=== PATIENT | male | born 1965 | race American Indian/Alaskan Native ===

== ENCOUNTER 2017-06-02 23:38 | Emergency (ER) | payer MEDICARE ==
[2017-06-03 00:26] LABS: Hematocrit 42.3 % (35.5-45.6); Hemoglobin 14.2 gm/dl (11.8-15.2); Mean Corpuscular HGB Conc 34 % (32-34); Mean Corpuscular Hemoglobin 28 pg (28-32); Mean Corpuscular Volume 83 fl (84-94); Platelet Count 177 K/mm3 (140-440); Red Blood Count 5.13 M/mm3 (3.65-5.03); Red Cell Distribution Width 13.8 % (13.2-15.2); White Blood Count 4.1 K/mm3 (4.5-11.0)
[2017-06-03 00:34] LABS: Anion Gap 17 mmol/L; BUN/Creatinine Ratio 13.57; Blood Urea Nitrogen 19 mg/dL (9-20); Calcium 8.6 mg/dL (8.4-10.2); Carbon Dioxide 21 mmol/L (22-30); Chloride 102.6 mmol/L (98-107); Glucose 92 mg/dL (75-100); Potassium 3.4 mmol/L (3.6-5.0); Sodium 137 mmol/L (137-145)
[2017-06-03 01:17] LABS: Urine Drugs of Abuse Note Disclamer
[2017-06-03 01:20] LABS: Bilirubin,Urine NEG (Negative); Blood,Urine SM (Negative); Ketones,Urine NEG (Negative); Leukocyte Esterase,Urine NEG (Negative); Mucus,Urine FEW /HPF; Nitrite,Urine NEG (Negative); RBC,Urine < 1.0 /HPF (0.0-6.0)
[2017-06-03 01:37] LABS: Basophils % (Manual) 0 % (0.0-1.8); Blastocytes % (Manual) 0 %
[2017-06-03 01:38] LABS: Diff Status Complete; RBC Morphology Normal; Smudge Cells 1+
--- NOTE | 2017-06-03 02:15 | Emergency Department Report ---
HPI - General Chief Complaint: Psych Time Seen by Provider: 06/03/17 01:03 - HPI HPI: This is a 51-year-old Afro-Burkinan male who presents to the emergency department with complaint of depression, suicidal ideations and a recent attempt , 3 days ago. The patient has a history of manic depression. He stopped taking his prescription about 1 month ago but he is currently unable to tell me the name of this prescription. He has a past medical history of HIV and had some recent foot surgery to his heel secondary to osteomyelitis. He is no longer on antibiotics and it has "closed up". When he attempted to harm himself 3 days ago, the patient took multiple sleeping pills, Xanax, alcohol and did cocaine. He denies any chest pain, shortness of breath, nausea, vomiting, fever. He denies any visual or auditory hallucinations or any homicidal ideations. ED Past Medical Hx - Past Medical History Previous Medical History?: Yes Hx Psychiatric Treatment: Yes (Depression) Hx HIV: Yes Additional medical history: Skin CA - Surgical History Past Surgical History?: Yes Additional Surgical History: right foot surgery - Social History Smoking Status: Current Every Day Smoker Substance Use Type: Cocaine, Other - Medications Home Medications: Home Medications Medication Instructions Recorded Confirmed Last Taken Type Abacavir/Lamivudine/Zidovudine 1 each PO DAILY 04/07/15 06/03/17 Unknown History [Trizivir TAB] Atazanavir Sulfate [Reyataz] 300 mg PO BID 04/07/15 06/03/17 Unknown History Hydrochlorothiazide [Hctz] 12.5 mg PO QDAY 04/07/15 06/03/17 04/07/15 History Lisinopril [Zestril] 20 mg PO QDAY 04/07/15 06/03/17 04/06/15 History Ritonavir [Norvir] 100 mg PO QDAY 04/07/15 06/03/17 Unknown History Permethrin 5% [Acticin 5% CREAM] 1 applicatio TP ONCE #2 tube 04/08/15 06/03/17 Unknown Rx hydrOXYzine HCL [Atarax] 25 mg PO Q6HR PRN #20 tablet 04/08/15 06/03/17 Unknown Rx ED Review of Systems ROS: Stated complaint: MH/DEPRESSION Other details as noted in HPI Comment: All other systems reviewed and negative Constitutional: denies: chills, fever Eyes: denies: eye pain, eye discharge, vision change ENT: denies: ear pain, throat pain Respiratory: denies: cough, shortness of breath, wheezing Cardiovascular: denies: chest pain, palpitations Gastrointestinal: denies: abdominal pain, nausea, diarrhea Genitourinary: denies: urgency, dysuria Musculoskeletal: denies: back pain, joint swelling, arthralgia Skin: denies: rash, lesions Neurological: denies: headache, weakness, paresthesias Psychiatric: suicidal thoughts. denies: auditory hallucinations, visual hallucinations, homicidal thoughts Physical Exam - Physical Exam Vital Signs: Vital Signs 06/02/17 23:40 Temperature 97.6 F Pulse Rate 72 Respiratory 20 Rate Blood Pressure 132/83 [Right] O2 Sat by Pulse 95 Oximetry Physical Exam: GENERAL: The patient is well-developed well-nourished. HEENT: Normocephalic. Atraumatic. Extraocular motions are intact. Patient has moist mucous membranes. Pupils equal reactive to light bilaterally. NECK: Supple. Trachea is midline. CHEST/LUNGS: Clear to auscultation. There is no respiratory distress noted. HEART/CARDIOVASCULAR: Regular. There is no tachycardia. There is no gallop rub or murmur. ABDOMEN: Abdomen is soft, nontender. Patient has normal bowel sounds. There is no abdominal distention. SKIN: Skin is warm and dry. NEURO: The patient is awake, alert, and oriented. The patient is cooperative. The patient has no focal neurologic deficits. The patient has normal speech. MUSCULOSKELETAL: There is no tenderness or deformity. There is no limitation range of motion. There is no evidence of acute injury. ED Course Vital Signs 06/02/17 23:40 Temperature 97.6 F Pulse Rate 72 Respiratory 20 Rate Blood Pressure 132/83 [Right] O2 Sat by Pulse 95 Oximetry ED Medical Decision Making - Lab Data Result diagrams: 06/03/17 00:03 06/03/17 00:03 - Medical Decision Making Labs are mostly unremarkable. Urine drug positive for marijuana and cocaine. No current alcohol on board. The rest the labs are unremarkable and do not show any etiology of the patient's symptoms. He has been made a 1013 secondary to his depression and suicidal ideations. Vital signs stable including being afebrile. Patient is medically cleared for psychiatric placement. - Differential Diagnosis depression, bipolar disorder, schizophrenia, substance abuse Critical Care Time: No Critical care attestation.: If time is entered above; I have spent that time in minutes in the direct care of this critically ill patient, excluding procedure time. ED Disposition Clinical Impression: Suicidal ideations Depression Qualifiers: Depression Type: unspecified Qualified Code(s): F32.9 - Major depressive disorder, single episode, unspecified Disposition: DC/TX-65 PSY HOSP/PSY UNIT Is pt being admited?: No Condition: Stable Referrals: GATO PERRY JR, MD [Primary Care Provider] - 3-5 Days Time of Disposition: 02:15
[2017-06-03] MEDS ORDERED: COMBIVIR 150-300 mg PO SCH (10:00)
[2017-06-03] MEDS ORDERED: ABACAVIR PO SCH (10:00)
[2017-06-03] MEDS ORDERED: ZIDOVUDINE PO SCH (10:00)
[2017-06-03] MEDS ORDERED: ATAZANAVIR SULFATE 300 MG PO SCH ×2 (10:00)
[2017-06-03] MEDS ORDERED: LAMIVUDINE PO SCH (10:00)
[2017-06-03] MEDS ORDERED: ULTRAM PO ONE (12:02)
[2017-06-03] MEDS ORDERED: CLEOCIN PO ONE (14:25)
--- NOTE | 2017-06-03 16:13 | XRay Report ---
FINAL REPORT EXAM: XR FOOT 2V RT HISTORY: wound TECHNIQUE: 2 views of the right foot PRIORS: None. FINDINGS: Soft tissue swelling proximal plantar surface. A superficial bandage appears present in this location. No evidence of foreign body. Calcaneus best visualized on lateral view. It appears deformed with apparent flattening of the height. This may be from prior trauma or developmental variation. Erosive change at the plantar surface cannot be entirely excluded since there is slight sclerosis and cortical irregularity in this region. If available, it may be useful to compare with prior radiographs to evaluate for interval change. Multifocal degenerative change. No definite acute fracture or dislocation. IMPRESSION: Nonspecific deformity of calcaneus may be from prior trauma or developmental variation. The differential includes erosive change of the plantar surface with adjacent sclerosis and cortical irregularity. As such, findings raise suspicion of osteomyelitis.
[2017-06-03] MEDS ORDERED: CLEOCIN ONE (16:41)
[2017-06-03] MEDS ORDERED: TYLENOL PO ONE (17:02)
[2017-06-03] MEDS ORDERED: MOTRIN PO ONE (17:02)
[2017-06-03] MEDS: EPIVIR PO SCH (18:02)
[2017-06-03] MEDS: HCTZ PO SCH (18:03)
[2017-06-03] MEDS: REYATAZ PO SCH (18:03)
[2017-06-03] MEDS: RETROVIR PO SCH (18:03)
[2017-06-03] MEDS: NORVIR PO SCH (18:03)
[2017-06-03] MEDS: ZIAGEN PO SCH (18:03)
[2017-06-04] MEDS: HCTZ PO SCH (11:12)
[2017-06-04] MEDS: REYATAZ PO SCH (11:13)
[2017-06-04] MEDS: EPIVIR PO SCH (11:13)
[2017-06-04] MEDS: ZIAGEN PO SCH (11:13)
[2017-06-04] MEDS: RETROVIR PO SCH (11:13)
[2017-06-04] MEDS: NORVIR PO SCH (11:14)
[2017-06-04 13:26] LABS: Alanine Aminotransferase 67 units/L (7-56); Alkaline Phosphatase 79 units/L (35-129)
--- NOTE | 2017-06-04 15:40 | Consultation ---
History of Present Illness - Reason for Consult Consult date: 06/04/17 Reason for consult: Mental Health Evaluation Requesting physician: GREGORY MORENO - Chief Complaint Chief complaint: "I have evil thoughts" - History of Present Psychiatric Illness This is a 51-year-old Afro-Burmese male who presents to the emergency department with complaint of depression, suicidal ideations and a recent attempt 3 days ago. Today patient is calm and cooperative during assessment. He stated that he want to "", but not willing to tell why. He stated taking multiple xanax, consumed a lot of alcohol (etoh), and smoked crack cocaine to kill himself. He stated, "I smoked the crack cocaine to bust my heart open." He stated having thoughts about killing himself multiple times in the past. He did state the voices he hear is "some" of the problem why he want to . He stated that the voices are "overwhelming." He stated that he have not taken his medication in a month (Abiify). He denies HI's, and VH's. He denies a poor appetite, but stated having erratic sleep in the last week. He stated that he don't usually smoke crack cocaine, but smoke marijuana often. He did acknowledge that his alcohol consumption has increased. Medications and Allergies Allergies Allergy/AdvReac Type Severity Reaction Status Date / Time No Known Allergies Allergy Unverified 04/07/15 22:15 Home Medications Medication Instructions Recorded Confirmed Last Taken Type Abacavir/Lamivudine/Zidovudine 1 each PO DAILY 04/07/15 06/03/17 Unknown History [Trizivir TAB] Atazanavir Sulfate [Reyataz] 300 mg PO BID 04/07/15 06/03/17 Unknown History Hydrochlorothiazide [Hctz] 12.5 mg PO QDAY 04/07/15 06/03/17 04/07/15 History Lisinopril [Zestril] 20 mg PO QDAY 04/07/15 06/03/17 04/06/15 History Ritonavir [Norvir] 100 mg PO QDAY 04/07/15 06/03/17 Unknown History Permethrin 5% [Acticin 5% CREAM] 1 applicatio TP ONCE #2 tube 04/08/15 06/03/17 Unknown Rx hydrOXYzine HCL [Atarax] 25 mg PO Q6HR PRN #20 tablet 04/08/15 06/03/17 Unknown Rx Active Meds: Active Medications Abacavir Sulfate (Ziagen) 300 mg PO DAILY [facility] Last Admin: 06/04/17 11:13 Dose: Not Given Atazanavir (Reyataz) 300 mg PO DAILY [facility] Last Admin: 06/04/17 11:13 Dose: Not Given Hydrochlorothiazide (Hctz) 12.5 mg PO QDAY [facility] Last Admin: 06/04/17 11:12 Dose: 12.5 mg Lamivudine (Epivir) 150 mg PO DAILY [facility] Last Admin: 06/04/17 11:13 Dose: Not Given Ritonavir (Norvir) 100 mg PO QDAY [facility] Last Admin: 06/04/17 11:14 Dose: Not Given Zidovudine (Retrovir) 300 mg PO DAILY [facility] Last Admin: 06/04/17 11:13 Dose: Not Given Past psychiatric history - Past Medical History Past Medical History: other (osteomyelitis) Past Surgical History: No surgical history - past Psychiatric treatment and history Psych: Bipolar, Depression psychiatric treatment history: Patient admit to multiple inpatient settings. He denies a fam psy hx. - Social History Social history: Lives alone, other ([employer] graduate and some college) Mental Status Exam - Vital signs Last Vital Signs Temp 98.3 F 06/04/17 09:27 Pulse 62 06/04/17 09:27 Resp 18 06/04/17 09:27 BP 126/77 06/04/17 09:27 Pulse Ox 98 06/04/17 09:27 - Exam Narrative exam: ROS: (+) psychotic/manic MSE: Appearance: calm, cooperative Behavior: regular eye contact Speech: regular rate and tone Mood: "I am sick" Affect: labile Thought Process: circumstantial Thought Content: denies SI and VH's Motor Activity: lying in bed Cognition: A/Ox 3 Insight: poor Judgment: poor Results Result Diagrams: 06/03/17 00:03 06/03/17 00:03 Abnormal lab results 06/04/17 06/04/17 Range/Units 12:54 12:54 AST 70 H (5-40) units/L ALT 67 H (7-56) units/L Valproic Acid < 2.8 L (50-100) ug/mL All other labs normal. Assessment and Plan Assessment and plan: Impression: Historical Dx: Bipolar DO. Experiencing perceptional disturbances ( AH's). Substance Use DO (marijuana and cocaine). Possible Alcohol Use DO. Patient positive for marijuana and cocaine. No acute withdrawals noted (etoh). Today patient is calm and cooperative during assessment. He stated that he want to , but not willing to tell why. Patient HIV+. Patient use wheelchair ( osteomyelitis in [place]). DDx: R/O MDD, R/O Substance Induced Psychosis/Mood DO Recommendation/Plan: Continue 1013 with placement to inpatient psy services. Start Abilify 5 mg PO Daily for psychotic symptoms and Benadryl 25 mg PO HS PRN for sleep. Discussed possible metabolic side effects of Abilify with patient.
[2017-06-04] MEDS ORDERED: BENADRYL PO PRN (16:02)
[2017-06-04] MEDS: ABILIFY PO SCH ×2 (17:16→20:51)
[2017-06-05] MEDS: HCTZ PO SCH (10:02)
[2017-06-05] MEDS: ABILIFY PO SCH (10:03)
[2017-06-05] MEDS: RETROVIR PO SCH (10:16)
[2017-06-05] MEDS: NORVIR PO SCH (10:16)
[2017-06-05] MEDS: EPIVIR PO SCH (10:16)
[2017-06-05] MEDS: REYATAZ PO SCH (10:16)
[2017-06-05] MEDS: ZIAGEN PO SCH (10:17)
[2017-06-05 10:58] LABS: Alanine Aminotransferase 64 units/L (7-56)
--- NOTE | 2017-06-05 13:32 | Progress Note ---
Subjective - Reason for Consult Consult date: 06/05/17 Reason for consult: Psychiatry Follow-up - Chief Complaint Chief complaint: "The thoughts are still there" This is a 51-year-old Afro-Maldivian male who presents to the emergency department with complaint of depression, suicidal ideations and a recent attempt 3 days ago. Today patient is calm and cooperative during the assessment. He stated that the thoughts of killing himself is still there. He stated feeling "awful" about life at this time. Also, he stated the voices say evil things about him, so he tries to ignore them. He denies HI's and VH's. He reported better sleep last night. Patient does not want to take his HIV medications and refuse to elaborate why. Mental Status Exam - Vital signs Last Vital Signs Temp 98 F 06/05/17 07:40 Pulse 60 06/05/17 10:04 Resp 16 06/05/17 10:04 BP 128/81 06/05/17 10:04 Pulse Ox 100 06/05/17 10:04 - Exam Narrative exam: MSE: Appearance: calm, cooperative Behavior: regular eye contact Speech: regular rate and tone Mood: "tired" Affect: labile Thought Process: circumstantial Thought Content: denies HI's and VH's Motor Activity: lying in bed Cognition: A/Ox 3 Insight: limited Judgment: limited Assessment and Plan Impression: Historical Dx: Bipolar DO. Experiencing perceptional disturbances ( AH's). Substance Use DO (marijuana and cocaine). Possible Alcohol Use DO. Patient positive for marijuana and cocaine. No acute withdrawals noted (etoh). Today patient is calm and cooperative during assessment. Patient HIV+. Patient use wheelchair (Osteomyelitis in [place]). He is refusing his HIV medications. Recommendation/Plan: Continue 1013 with placement to inpatient psy services. Continue Abilify 5 mg PO Daily for psychotic symptoms and Benadryl 25 mg PO HS PRN for sleep. Discussed possible metabolic side effects of Abilify with patient.
[2017-06-05 15:40] VITALS: BP 125/78
== END 2017-06-05 18:02 ==
LOC: ED 23:38 → EEVIPCON 23:38 → ED 06-05 18:02
DX: R45.851 Suicidal ideations (principal); F32.9 Major depressive disorder, single episode, unspecified; F17.200 Nicotine dependence, unspecified, uncomplicated; F14.10 Cocaine abuse, uncomplicated
CPT/HCPCS: 36415; 73620; 80048; 80307; 81001; 84450; 84460; 85007; 85025; 99285; G0480; 80320

== ENCOUNTER 2019-02-18 22:11 | Emergency (ER) | payer MEDICARE ==
--- NOTE | 2019-02-18 23:16 | Emergency Department Report ---
ED Psych HPI - General Chief Complaint: Psych Stated Complaint: SUICIDAL Time Seen by Provider: 02/18/19 23:04 Source: patient Mode of arrival: Ambulatory - History of Present Illness Initial Comments: Patient is 53 years old male with history of schizophrenia. Patient presented to the ER complaining of depression and suicidal thoughts. Patient has a plan and stated that he is planning to overdose on medication. Patient stated that he had a lot of problem with his family and patient started to cry in tears while I was examining him. Patient also stated that he has been hearing voices asking him to kill himself. Patient denied any visual hallucination or homicidal ideation. MD Complaint: suicidal ideation, feels depressed Associated Psychiatric Symptoms: depression, suicidal ideation, auditory hallucinations History of same: Yes Quality: constant Associated Symptoms: denies other symptoms If Self Harm: admits thoughts of, has plan, intentional overdose - Related Data Home Medications Medication Instructions Recorded Confirmed Last Taken Abacavir/Lamivudine/Zidovudine 1 each PO DAILY 04/07/15 06/03/17 Unknown [Trizivir TAB] Atazanavir Sulfate [Reyataz] 300 mg PO BID 04/07/15 06/03/17 Unknown Lisinopril [Zestril] 20 mg PO QDAY 04/07/15 06/03/17 04/06/15 Ritonavir [Norvir] 100 mg PO QDAY 04/07/15 06/03/17 Unknown hydroCHLOROthiazide [Hctz] 12.5 mg PO QDAY 04/07/15 06/03/17 04/07/15 Previous Rx's Medication Instructions Recorded Last Taken Type Permethrin 5% [Acticin 5% CREAM] 1 applicatio TP ONCE #2 tube 04/08/15 Unknown Rx hydrOXYzine HCL [Atarax] 25 mg PO Q6HR PRN #20 tablet 04/08/15 Unknown Rx Allergies Allergy/AdvReac Type Severity Reaction Status Date / Time No Known Allergies Allergy Unverified 04/07/15 22:15 ED Review of Systems ROS: Stated complaint: SUICIDAL Other details as noted in HPI Comment: All other systems reviewed and negative Constitutional: denies: chills, fever Respiratory: denies: cough, shortness of breath, SOB with exertion Cardiovascular: denies: chest pain, palpitations Gastrointestinal: denies: abdominal pain, nausea, vomiting Neurological: denies: headache, weakness, numbness, paresthesias, confusion Psychiatric: depression, auditory hallucinations, suicidal thoughts. denies: visual hallucinations, homicidal thoughts ED Past Medical Hx - Past Medical History Hx Psychiatric Treatment: Yes (Depression, drug abuse) Hx HIV: Yes Additional medical history: Skin CA - Surgical History Additional Surgical History: right foot surgery - Social History Smoking Status: Current Every Day Smoker Substance Use Type: Cocaine, Marijuana - Medications Home Medications: Home Medications Medication Instructions Recorded Confirmed Last Taken Type Abacavir/Lamivudine/Zidovudine 1 each PO DAILY 04/07/15 06/03/17 Unknown History [Trizivir TAB] Atazanavir Sulfate [Reyataz] 300 mg PO BID 04/07/15 06/03/17 Unknown History Lisinopril [Zestril] 20 mg PO QDAY 04/07/15 06/03/17 04/06/15 History Ritonavir [Norvir] 100 mg PO QDAY 04/07/15 06/03/17 Unknown History hydroCHLOROthiazide [Hctz] 12.5 mg PO QDAY 04/07/15 06/03/17 04/07/15 History Permethrin 5% [Acticin 5% CREAM] 1 applicatio TP ONCE #2 tube 04/08/15 06/03/17 Unknown Rx hydrOXYzine HCL [Atarax] 25 mg PO Q6HR PRN #20 tablet 04/08/15 06/03/17 Unknown Rx ED Physical Exam - General Limitations: No Limitations General appearance: alert, in no apparent distress, other (depressed) - Head Head exam: Present: atraumatic, normocephalic, normal inspection - Eye Eye exam: Present: normal appearance - ENT ENT exam: Present: normal exam, normal orophraynx, mucous membranes moist - Neck Neck exam: Present: normal inspection, full ROM. Absent: tenderness, meningismus, lymphadenopathy, thyromegaly - Respiratory Respiratory exam: Present: normal lung sounds bilaterally. Absent: respiratory distress, wheezes, rales, rhonchi, stridor, chest wall tenderness, accessory muscle use, decreased breath sounds, prolonged expiratory - Cardiovascular Cardiovascular Exam: Present: regular rate, normal rhythm, normal heart sounds - GI/Abdominal GI/Abdominal exam: Present: soft, normal bowel sounds. Absent: distended, tenderness, guarding, rebound, rigid, organomegaly, mass, bruit, pulsatile mass, hernia - Extremities Exam Extremities exam: Present: normal inspection, full ROM, normal capillary refill - Back Exam Back exam: Present: normal inspection, full ROM. Absent: tenderness, CVA tenderness (R), CVA tenderness (L), muscle spasm, paraspinal tenderness, vertebral tenderness - Neurological Exam Neurological exam: Present: alert, oriented X3, CN II-XII intact, normal gait, reflexes normal - Psychiatric Psychiatric exam: Present: depressed, suicidal ideation. Absent: agitated, anxious, flat affect, manic, homicidal ideation - Skin Skin exam: Present: warm, intact, normal color ED Course Vital Signs 02/18/19 02/18/19 22:32 22:49 Temperature 98.0 F 98 F Pulse Rate 98 H 89 Respiratory 18 18 Rate Blood Pressure 149/89 149/89 O2 Sat by Pulse 99 99 Oximetry Critical care attestation.: If time is entered above; I have spent that time in minutes in the direct care of this critically ill patient, excluding procedure time. ED Disposition Clinical Impression: Depression, Suicidal ideation Disposition: DC/TX-65 PSY HOSP/PSY UNIT Is pt being admited?: No Condition: Stable
[2019-02-18 23:25] LABS: Basophils % (Auto) 0.7 % (0.0-1.8); Eosinophils # (Auto) 0.9 K/mm3 (0.0-0.4); Eosinophils % (Auto) 14.3 % (0.0-4.3); Hematocrit 42.7 % (35.5-45.6); Hemoglobin 14.6 gm/dl (11.8-15.2); Lymphocytes # (Auto) 1.5 K/mm3 (1.2-5.4); Lymphocytes % (Auto) 22.7 % (13.4-35.0); Mean Corpuscular HGB Conc 34 % (32-34); Mean Corpuscular Volume 86 fl (84-94); Monocytes # (Auto) 0.9 K/mm3 (0.0-0.8); Platelet Count 235 K/mm3 (140-440); Red Blood Count 4.97 M/mm3 (3.65-5.03); Red Cell Distribution Width 13.9 % (13.2-15.2)
[2019-02-18 23:49] LABS: BUN/Creatinine Ratio 16; Blood Urea Nitrogen 21 mg/dL (9-20); Calcium 9.6 mg/dL (8.4-10.2); Hemolysis Index 11
[2019-02-19 00:12] LABS: Bilirubin,Urine NEG (Negative); Blood,Urine NEG (Negative); Color,Urine Yellow (Yellow); Mucus,Urine FEW /HPF; Protein,Urine <15 mg/dL mg/dL (Negative)
[2019-02-19 00:20] LABS: Amphetamine Screen,Urine PRESUMPTIVE NEGATIVE; Benzodiazepines Screen,Urine PRESUMPTIVE NEGATIVE; Cannabinoid Screen,Urine PRESUMPTIVE NEGATIVE; Methadone Screen,Urine PRESUMPTIVE NEGATIVE; Opiate Screen,Urine PRESUMPTIVE NEGATIVE
[2019-02-19 00:37] LABS: Cocaine Screen,Urine PRESUMPTIVE POSITIVE
[2019-02-19] MEDS ORDERED: HCTZ PO SCH (10:00)
[2019-02-19 10:41] VITALS: BP 132/91
== END 2019-02-19 10:42 ==
LOC: EEVIPCON 22:11 → ED 22:11
DX: F32.9 Major depressive disorder, single episode, unspecified (principal); F17.200 Nicotine dependence, unspecified, uncomplicated; F12.10 Cannabis abuse, uncomplicated; F14.10 Cocaine abuse, uncomplicated
CPT/HCPCS: 36415; 80048; 80307; 81001; 85025; 99285; G0480; 80320

== ENCOUNTER 2019-03-18 09:36 | Emergency (ER) | payer MEDICARE ==
[2019-03-18 10:04] VITALS: BP 132/89
--- NOTE | 2019-03-18 10:50 | Emergency Department Report ---
ED Extremity Problem HPI - General Chief complaint: Extremity Problem,Nontraumatic Stated complaint: R FOOT PAIN Time Seen by Provider: 03/18/19 10:21 Source: patient Mode of arrival: Wheelchair Limitations: No Limitations - History of Present Illness Initial comments: Patient is a 53-year-old male with a past medical history of hypertension and HIV and osteomyelitis of the right heel who had surgery on the right heel several years ago who is complaining of a wound to the plantar surface of the right foot. Patient states that his wound has been open for approximately a year and he does see wound care however he's had pain with the drainage for the past 3 days. Patient states his aching sharp sensation and is having difficulty walking. States is 7 out of 10 in severity. He denies any fevers chills nausea vomiting diarrhea at this time. - Related Data Home Medications Medication Instructions Recorded Confirmed Last Taken Abacavir/Lamivudine/Zidovudine 1 each PO DAILY 04/07/15 02/18/19 Unknown [Trizivir TAB] Atazanavir Sulfate [Reyataz] 300 mg PO BID 04/07/15 02/18/19 Unknown Lisinopril [Zestril] 20 mg PO QDAY 04/07/15 02/18/19 04/06/15 Ritonavir [Norvir] 100 mg PO QDAY 04/07/15 02/18/19 Unknown hydroCHLOROthiazide [Hctz] 12.5 mg PO QDAY 04/07/15 02/18/19 04/07/15 Previous Rx's Medication Instructions Recorded Last Taken Type Permethrin 5% [Acticin 5% CREAM] 1 applicatio TP ONCE #2 tube 04/08/15 Unknown Rx hydrOXYzine HCL [Atarax] 25 mg PO Q6HR PRN #20 tablet 04/08/15 Unknown Rx Acetaminophen/Codeine [Tylenol 1 tab PO Q6H PRN #15 tab 03/04/19 Unknown Rx /Codeine # 3 tab] Acetaminophen/Codeine [Tylenol 1 tab PO Q6H PRN #15 tab 03/04/19 Unknown Rx /Codeine # 3 tab] Hydrocortisone 15 gm TP BID #1 cream..g. 03/04/19 Unknown Rx Sulfamethoxazole/Trimethoprim 2 each PO BID #8 tablet 03/04/19 Unknown Rx [Bactrim DS TAB] Clindamycin [Clindamycin CAP] 300 mg PO Q8H #21 cap 03/18/19 Unknown Rx HYDROcodone/APAP 5-325 [[place] 1 each PO Q6HR PRN #14 tablet 03/18/19 Unknown Rx 5/325] Ibuprofen [Motrin 800 MG tab] 800 mg PO Q8HR PRN #10 tablet 03/18/19 Unknown Rx Allergies Allergy/AdvReac Type Severity Reaction Status Date / Time No Known Allergies Allergy Verified 03/16/19 13:50 ED Review of Systems ROS: Stated complaint: R FOOT PAIN Other details as noted in HPI Comment: All other systems reviewed and negative ED Past Medical Hx - Past Medical History Previous Medical History?: Yes Hx Hypertension: Yes Hx Psychiatric Treatment: Yes (Depression, drug abuse) Hx HIV: Yes Additional medical history: Skin CA, "Gallbladder messed up" - Surgical History Past Surgical History?: Yes Additional Surgical History: right foot surgery - Social History Smoking Status: Current Every Day Smoker Substance Use Type: None - Medications Home Medications: Home Medications Medication Instructions Recorded Confirmed Last Taken Type Abacavir/Lamivudine/Zidovudine 1 each PO DAILY 04/07/15 02/18/19 Unknown History [Trizivir TAB] Atazanavir Sulfate [Reyataz] 300 mg PO BID 04/07/15 02/18/19 Unknown History Lisinopril [Zestril] 20 mg PO QDAY 04/07/15 02/18/19 04/06/15 History Ritonavir [Norvir] 100 mg PO QDAY 04/07/15 02/18/19 Unknown History hydroCHLOROthiazide [Hctz] 12.5 mg PO QDAY 04/07/15 02/18/19 04/07/15 History Permethrin 5% [Acticin 5% CREAM] 1 applicatio TP ONCE #2 tube 04/08/15 02/18/19 Unknown Rx hydrOXYzine HCL [Atarax] 25 mg PO Q6HR PRN #20 tablet 04/08/15 02/18/19 Unknown Rx Acetaminophen/Codeine [Tylenol 1 tab PO Q6H PRN #15 tab 03/04/19 Unknown Rx /Codeine # 3 tab] Acetaminophen/Codeine [Tylenol 1 tab PO Q6H PRN #15 tab 03/04/19 Unknown Rx /Codeine # 3 tab] Hydrocortisone 15 gm TP BID #1 cream..g. 03/04/19 Unknown Rx Sulfamethoxazole/Trimethoprim 2 each PO BID #8 tablet 03/04/19 Unknown Rx [Bactrim DS TAB] Clindamycin [Clindamycin CAP] 300 mg PO Q8H #21 cap 03/18/19 Unknown Rx HYDROcodone/APAP 5-325 [[place] 1 each PO Q6HR PRN #14 tablet 03/18/19 Unknown Rx 5/325] Ibuprofen [Motrin 800 MG tab] 800 mg PO Q8HR PRN #10 tablet 03/18/19 Unknown Rx ED Physical Exam - General Limitations: No Limitations General appearance: alert, in no apparent distress - Head Head exam: Present: atraumatic, normocephalic - Eye Eye exam: Present: normal appearance - ENT ENT exam: Present: mucous membranes moist - Neck Neck exam: Present: normal inspection - Respiratory Respiratory exam: Present: normal lung sounds bilaterally. Absent: respiratory distress, wheezes, rales, rhonchi - Cardiovascular Cardiovascular Exam: Present: regular rate, normal rhythm. Absent: systolic murmur, diastolic murmur, rubs, gallop - GI/Abdominal GI/Abdominal exam: Present: soft, normal bowel sounds. Absent: distended, tenderness, guarding - Rectal Rectal exam: Present: deferred - Extremities Exam Extremities exam: Present: normal inspection - Expanded Lower Extremity Exam Right Foot/Toe exam: Present: full ROM, tenderness, erythema (patient with a dime- sized ulcerated area to the plantar surface of the right foot. There is some serous sanguinous drainage. There is minimal surrounding erythema present. There is tenderness to palpation. There is no fluctuance.). Absent: swelling - Back Exam Back exam: Present: normal inspection - Neurological Exam Neurological exam: Present: alert, oriented X3 - Psychiatric Psychiatric exam: Present: normal affect, normal mood - Skin Skin exam: Present: warm, dry, intact, normal color. Absent: rash ED Course Vital Signs 03/18/19 09:54 Temperature 98.7 F Pulse Rate 90 Respiratory 16 Rate Blood Pressure 132/89 O2 Sat by Pulse 99 Oximetry ED Medical Decision Making - Medical Decision Making Patient appears to have an infected wound to the right foot. Pain has been present for approximately 3 days.. Patient to be placed on antibiotics and fo llow with his wound care clinic. Critical care attestation.: If time is entered above; I have spent that time in minutes in the direct care of this critically ill patient, excluding procedure time. ED Disposition Clinical Impression: Infected wound Cellulitis Qualifiers: Site of cellulitis: extremity Site of cellulitis of extremity: lower extremity Laterality: right Qualified Code(s): L03.115 - Cellulitis of right lower limb Disposition: DC-01 TO HOME OR SELFCARE Is pt being admited?: No Does the pt Need Aspirin: No Condition: Stable Instructions: Wound Infection (ED) Referrals: Ino VALERA MD [Primary Care Provider] - 3-5 Days
== END 2019-03-18 11:10 | disposition home or self-care (01) ==
LOC: ED 09:36
DX: S91.301A Unspecified open wound, right foot, initial encounter (principal); L03.115 Cellulitis of right lower limb; I10 Essential (primary) hypertension; F17.200 Nicotine dependence, unspecified, uncomplicated; X58.XXXA Exposure to other specified factors, initial encounter; Y93.89 Activity, other specified; Y92.89 Other specified places as the place of occurrence of the external cause; Y99.8 Other external cause status
CPT/HCPCS: 99282

== ENCOUNTER 2019-11-07 23:54 | Emergency (ER) | payer MEDICARE, OTHER ==
[2019-11-08] MEDS ORDERED: diphenhydrAMINE 50 MG/ML VIAL IV ONE (00:30)
[2019-11-08] MEDS ORDERED: methylPREDNISolone Sod Succinate 125 MG/2 ML INJ IV ONE (00:30)
[2019-11-08] MEDS ORDERED: FAMOTIDINE 20 MG/2 ML INJ IV ONE (00:30)
--- NOTE | 2019-11-08 00:53 | Emergency Department Report ---
ED Allergic Reaction HPI - General Chief complaint: Allergic Reaction Stated complaint: ALLERGIC REACTION Time Seen by Provider: 11/08/19 00:20 Source: patient, EMS Mode of arrival: Stretcher Limitations: Physical Limitation - History of Present Illness Initial Comments: Patient is a 54-year-old male presents emergency room with complaints of an allergic reaction that began just prior to arrival. He states that approximately at 3 PM he used just for men hair color which caused him to have an allergic reaction. He states he noticed scales and irritation to the face, rash, irritation to the eyes, edema to the eyelids. He denies getting anything into the eyes. He denies any vision changes. pt has not used this product before. He does not report any shortness of breath, throat swelling, difficulty in swallowing. He denies any allergies medications. He has a past medical history of chronic osteomyelitis and is currently receiving antibiotics through PICC line and hypertension and HIV. - Related Data Home Medications Medication Instructions Recorded Confirmed Last Taken Abacavir/Lamivudine/Zidovudine 1 each PO DAILY 04/07/15 02/18/19 Unknown [Trizivir TAB] Atazanavir Sulfate [Reyataz] 300 mg PO BID 04/07/15 02/18/19 Unknown Ritonavir [Norvir] 100 mg PO QDAY 04/07/15 02/18/19 Unknown hydroCHLOROthiazide [Hctz] 12.5 mg PO QDAY 04/07/15 02/18/19 04/07/15 lisinopriL [Zestril] 20 mg PO QDAY 04/07/15 02/18/19 04/06/15 Previous Rx's Medication Instructions Recorded Last Taken Type Permethrin 5% [Acticin 5% CREAM] 1 applicatio TP ONCE #2 tube 04/08/15 Unknown Rx hydrOXYzine HCL [Atarax] 25 mg PO Q6HR PRN #20 tablet 04/08/15 Unknown Rx Acetaminophen/Codeine [Tylenol 1 tab PO Q6H PRN #15 tab 03/04/19 Unknown Rx /Codeine # 3 tab] Acetaminophen/Codeine [Tylenol 1 tab PO Q6H PRN #15 tab 03/04/19 Unknown Rx /Codeine # 3 tab] Hydrocortisone [Hydrocortisone 1% 15 gm TP BID #1 cream..g. 03/04/19 Unknown Rx CREAM] Sulfamethoxazole/Trimethoprim 2 each PO BID #8 tablet 03/04/19 Unknown Rx [Bactrim DS TAB] Clindamycin [Clindamycin CAP] 300 mg PO Q8H #21 cap 03/18/19 Unknown Rx HYDROcodone/APAP 5-325 [[place] 1 each PO Q6HR PRN #14 tablet 03/18/19 Unknown Rx 5/325] Ibuprofen [Motrin 800 MG tab] 800 mg PO Q8HR PRN #10 tablet 03/18/19 Unknown Rx Hydrocortisone 1% [Hydrocortisone 1 applicatio TP TID 7 Days #1 tube 11/08/19 Unknown Rx 1% CREAM] Ketotifen Fumarate 1 drop OP BID 7 Days #1 drops 11/08/19 Unknown Rx diphenhydrAMINE [Benadryl CAP] 50 mg PO Q8HR PRN #30 capsule 11/08/19 Unknown Rx Allergies Allergy/AdvReac Type Severity Reaction Status Date / Time No Known Allergies Allergy Verified 03/16/19 13:50 ED Review of Systems ROS: Stated complaint: ALLERGIC REACTION Other details as noted in HPI Comment: All other systems reviewed and negative ED Past Medical Hx - Past Medical History Previous Medical History?: Yes Hx Hypertension: Yes Hx Psychiatric Treatment: Yes (Depression, drug abuse) Hx HIV: Yes Additional medical history: Skin CA, "Gallbladder messed up" - Surgical History Past Surgical History?: Yes Additional Surgical History: right foot surgery - Social History Smoking Status: Current Every Day Smoker Substance Use Type: None - Medications Home Medications: Home Medications Medication Instructions Recorded Confirmed Last Taken Type Abacavir/Lamivudine/Zidovudine 1 each PO DAILY 04/07/15 02/18/19 Unknown History [Trizivir TAB] Atazanavir Sulfate [Reyataz] 300 mg PO BID 04/07/15 02/18/19 Unknown History Ritonavir [Norvir] 100 mg PO QDAY 04/07/15 02/18/19 Unknown History hydroCHLOROthiazide [Hctz] 12.5 mg PO QDAY 04/07/15 02/18/19 04/07/15 History lisinopriL [Zestril] 20 mg PO QDAY 04/07/15 02/18/19 04/06/15 History Permethrin 5% [Acticin 5% CREAM] 1 applicatio TP ONCE #2 tube 04/08/15 02/18/19 Unknown Rx hydrOXYzine HCL [Atarax] 25 mg PO Q6HR PRN #20 tablet 04/08/15 02/18/19 Unknown Rx Acetaminophen/Codeine [Tylenol 1 tab PO Q6H PRN #15 tab 03/04/19 Unknown Rx /Codeine # 3 tab] Acetaminophen/Codeine [Tylenol 1 tab PO Q6H PRN #15 tab 03/04/19 Unknown Rx /Codeine # 3 tab] Hydrocortisone [Hydrocortisone 1% 15 gm TP BID #1 cream..g. 03/04/19 Unknown Rx CREAM] Sulfamethoxazole/Trimethoprim 2 each PO BID #8 tablet 03/04/19 Unknown Rx [Bactrim DS TAB] Clindamycin [Clindamycin CAP] 300 mg PO Q8H #21 cap 03/18/19 Unknown Rx HYDROcodone/APAP 5-325 [[place] 1 each PO Q6HR PRN #14 tablet 03/18/19 Unknown Rx 5/325] Ibuprofen [Motrin 800 MG tab] 800 mg PO Q8HR PRN #10 tablet 03/18/19 Unknown Rx Hydrocortisone 1% [Hydrocortisone 1 applicatio TP TID 7 Days #1 tube 11/08/19 Unknown Rx 1% CREAM] Ketotifen Fumarate 1 drop OP BID 7 Days #1 drops 11/08/19 Unknown Rx diphenhydrAMINE [Benadryl CAP] 50 mg PO Q8HR PRN #30 capsule 11/08/19 Unknown Rx ED Physical Exam - General Limitations: Physical Limitation General appearance: alert, in no apparent distress - Head Head exam: Present: atraumatic, normocephalic - Eye Eye exam: Present: PERRL, EOMI, conjunctival injection (bilaterally), other (mild amount of edema to eyelids) - ENT ENT exam: Present: normal orophraynx, mucous membranes moist, other (no signs of angioedema) - Respiratory Respiratory exam: Present: normal lung sounds bilaterally. Absent: respiratory distress, wheezes, rales, rhonchi, stridor, chest wall tenderness, accessory muscle use, decreased breath sounds, prolonged expiratory - Cardiovascular Cardiovascular Exam: Present: regular rate, normal rhythm, normal heart sounds. Absent: systolic murmur, diastolic murmur, rubs, gallop - Neurological Exam Neurological exam: Present: alert, oriented X3 - Psychiatric Psychiatric exam: Present: normal affect, normal mood - Skin Skin exam: Present: rash (dryness and scaling present to the face and right ear with mild erythema, no sloughing of the skin, no blistering, no necrosis) ED Course Vital Signs 11/08/19 11/08/19 00:12 07:00 Temperature 98.4 F Pulse Rate 95 H 80 Respiratory 18 18 Rate Blood Pressure 156/93 Blood Pressure 125/77 [Left] O2 Sat by Pulse 97 96 Oximetry ED Medical Decision Making - Medical Decision Making Patient is a 54-year-old male presents emergency room with complaints of an allergic reaction that began just prior to arrival. He states that approximately at 3 PM he used just for men hair color which caused him to have an allergic reaction. He states he noticed scales and irritation to the face, rash, irritation to the eyes, edema to the eyelids. He denies getting anything into the eyes. He denies any vision changes. pt has not used this product before. He does not report any shortness of breath, throat swelling, difficulty in swallowing. He denies any allergies medications. He has a past medical history of chronic osteomyelitis and is currently receiving antibiotics through PICC line and hypertension and HIV. VSS. on exam: dryness and scaling present to the face and right ear with mild erythema, no sloughing of the skin, no blistering, no necrosis. examination consistent with contact dermatitis, no signs of angioedema. pt given benadryl, solumedrol, and pepcid. pt was feeling much better after medications and itching had resolved. given prescription for hydrocortisone, benadryl, zatidor. advised to please use medication as prescribed. Please use ointment on the face for one week. Please follow-up with a primary care doctor in the next 2-3 days for reexamination. avoid scratching. Return to the emergency room for any new or worsening symptoms. pt sent back to his facility. Critical care attestation.: If time is entered above; I have spent that time in minutes in the direct care of this critically ill patient, excluding procedure time. ED Disposition Clinical Impression: Contact dermatitis Qualifiers: Contact dermatitis type: allergic Contact dermatitis trigger: dye Qualified Code(s): L23.4 - Allergic contact dermatitis due to dyes Allergic conjunctivitis Qualifiers: Laterality: bilateral Qualified Code(s): H10.13 - Acute atopic conjunctivitis, bilateral Disposition: DC/TX-70 ANOTHER TYPE HLTHCARE Is pt being admited?: No Does the pt Need Aspirin: No Condition: Stable Instructions: Contact Dermatitis (ED) Additional Instructions: Please use medication as prescribed. Please use ointment on the face for one week. Please follow-up with a primary care doctor in the next 2-3 days for reexamination. avoid scratching. Return to the emergency room for any new or worsening symptoms. Prescriptions: diphenhydrAMINE [Benadryl CAP] 50 mg PO Q8HR PRN #30 capsule PRN Reason: itching Hydrocortisone 1% [Hydrocortisone 1% CREAM] 1 applicatio TP TID 7 Days #1 tube Ketotifen Fumarate 1 drop OP BID 7 Days #1 drops Referrals: PRIMARY CARE,MD [Primary Care Provider] - 2-3 Days Time of Disposition: 02:07 Print Language: BELGIAN
[2019-11-08 07:02] VITALS: BP 125/77
== END 2019-11-08 07:02 | disposition other institution (70) ==
LOC: ED 23:54
DX: L23.4 Allergic contact dermatitis due to dyes (principal); H10.13 Acute atopic conjunctivitis, bilateral; I10 Essential (primary) hypertension; F17.200 Nicotine dependence, unspecified, uncomplicated; Z79.899 Other long term (current) drug therapy; Z21 Asymptomatic human immunodeficiency virus [HIV] infection status; Z98.890 Other specified postprocedural states
CPT/HCPCS: 96374; 96375; 99283; J1200; J2930

== ENCOUNTER 2019-11-11 11:44 | Emergency (ER) | payer MEDICARE, OTHER ==
[2019-11-11 13:17] VITALS: BP 144/111
--- NOTE | 2019-11-11 14:42 | Emergency Department Report ---
Blank Doc - Documentation Documentation: 54-year-old male that presents with medical clearance to be sent back to [facility] for a IV antibiotics treatment. Was diagnosed with osteomyltisits to right leg. Was diagnosed at [facility]. This initial assessment/diagnostic orders/clinical plan/treatment(s) is/are s ubject to change based on patient's health status, clinical progression and re- assessment by fellow clinical providers in the ED. Further treatment and workup at subsequent clinical providers discretion. Patient/guardians urged not to elope from the ED as their condition may be serious if not clinically assessed and managed. Initial orders include: 1- Patient sent to MAIN ED for further evaluation and treatment 2- labs 3- Xrays
[2019-11-11 15:19] LABS: Hematocrit 37.4 % (35.5-45.6); Hemoglobin 12.3 gm/dl (11.8-15.2); Mean Corpuscular HGB Conc 33 % (32-34); Mean Corpuscular Volume 85 fl (84-94); Platelet Count 230 K/mm3 (140-440); Red Blood Count 4.38 M/mm3 (3.65-5.03); Red Cell Distribution Width 14.2 % (13.2-15.2)
[2019-11-11 15:36] LABS: BUN/Creatinine Ratio 22; Blood Urea Nitrogen 24 mg/dL (9-20); Calcium 9.6 mg/dL (8.4-10.2); Hemolysis Index 29
[2019-11-11 15:56] LABS: Basophils % (Manual) 0 % (0.0-1.8); Total Cells Counted 100
[2019-11-11 15:57] LABS: Anisocytosis 1+
--- NOTE | 2019-11-11 16:24 | XRay Report ---
RIGHT TIBIA FIBULA HISTORY: Right leg pain. COMPARISON: None. TECHNIQUE: 2 views of the right tibia and fibula were obtained. FINDINGS: Bones: An intramedullary bryson of the distal tibia traverses an oblique fracture with no apparent callu s. The distal fibula has been resected and there are surgical skin beatriz at the lateral aspect of t he ankle. There is a fiberglass cast of the foot and the lower leg which extends up to the proximal o ne third of the lower leg. Severely comminuted fractures of the hindfoot with collapse of the calcane us. The intramedullary bryson the tibia extends through to fuse the hindfoot. Joint spaces: Normal alignment at the knee and the ankle.. Soft tissues: No significant abnormality. Additional findings: Normal soft tissues. No soft tissue air. IMPRESSION: 1. Status post ORIF of distal tibia fracture and fusion of the tibia and hindfoot. 2. No complications identified. Signer Name: Houston Cisneros MD Signed: 11/11/2019 4:19 PM Workstation Name: [id number]
[2019-11-11] MEDS ORDERED: KETOROLAC 30 MG/1 ML INJ IM ONE (20:08)
[2019-11-11] MEDS ORDERED: ACETAMINOPHEN 500 MG TAB PO ONE (20:08)
--- NOTE | 2019-11-11 22:22 | Emergency Department Report ---
ED General Adult HPI - General Chief complaint: Medical Clearance Stated complaint: RT LEG PAIN Time Seen by Provider: 11/11/19 14:32 Source: patient Mode of arrival: Wheelchair Limitations: No Limitations - History of Present Illness Initial comments: Patient is a 54-year-old -[place] male with a history of chronic right ankle and foot pain, chronic osteoarthritis, and chronic HIV who is currently on IV antibiotic through the PICC line on the right upper for a recent diagnosed osteomyelitis of the right foot, and who presents to the ED with worsening right foot and ankle pain after he failed to take his narcotic pain medications over 24 hours ago. Patient states that he takes MS Contin 30 mg 3 times a day that he is currently in a rehabilitation facility for the parenteral IV antibiotic infusion for the recently diagnosed osteomyelitis of his right foot. Patient states that he checked himself out of that facility 24 hours ago "because I bored staying with older people"and decided to leave the facility. Patient states that he tried to go back to the facility about 12 hours ago and was told that he could not go back to the facility until he gets a medical clearance to continue taking his parenteral antibiotics will osteomyelitis. Patient however states that he has not taken his pain medication that the available at the [facility] facility. Patient also complains of persistent dry scaly erythematous itchy rashes in his groins are spreading to his thighs. Patient denies fever, chills, nausea, vomiting, dizziness, headache, chest pain, shortness of breath, change in vision or cough. MD Complaint: chronic right leg pain, right ankle; diffuse dry scaly rashes on the groins -: Gradual, year(s) (12) Location: lower extremity (right ankle and foot) Radiation: non-radiation Severity scale (0 -10): 3 Quality: aching, dull Consistency: constant Improves with: none Worsens with: movement Associated Symptoms: denies other symptoms. denies: chest pain, cough, diapho resis, fever/chills, headaches, loss of appetite, malaise, nausea/vomiting, rash, shortness of breath, syncope, weakness, other Treatments Prior to Arrival: none - Related Data Home Medications Medication Instructions Recorded Confirmed Last Taken Abacavir/Lamivudine/Zidovudine 1 each PO DAILY 04/07/15 02/18/19 Unknown [Trizivir TAB] Atazanavir Sulfate [Reyataz] 300 mg PO BID 04/07/15 02/18/19 Unknown Ritonavir [Norvir] 100 mg PO QDAY 04/07/15 02/18/19 Unknown hydroCHLOROthiazide [Hctz] 12.5 mg PO QDAY 04/07/15 02/18/19 04/07/15 lisinopriL [Zestril] 20 mg PO QDAY 04/07/15 02/18/19 04/06/15 Previous Rx's Medication Instructions Recorded Last Taken Type Permethrin 5% [Acticin 5% CREAM] 1 applicatio TP ONCE #2 tube 04/08/15 Unknown Rx hydrOXYzine HCL [Atarax] 25 mg PO Q6HR PRN #20 tablet 04/08/15 Unknown Rx Acetaminophen/Codeine [Tylenol 1 tab PO Q6H PRN #15 tab 03/04/19 Unknown Rx /Codeine # 3 tab] Acetaminophen/Codeine [Tylenol 1 tab PO Q6H PRN #15 tab 03/04/19 Unknown Rx /Codeine # 3 tab] Hydrocortisone [Hydrocortisone 1% 15 gm TP BID #1 cream..g. 03/04/19 Unknown Rx CREAM] Sulfamethoxazole/Trimethoprim 2 each PO BID #8 tablet 03/04/19 Unknown Rx [Bactrim DS TAB] Clindamycin [Clindamycin CAP] 300 mg PO Q8H #21 cap 03/18/19 Unknown Rx HYDROcodone/APAP 5-325 [[place] 1 each PO Q6HR PRN #14 tablet 03/18/19 Unknown Rx 5/325] Ibuprofen [Motrin 800 MG tab] 800 mg PO Q8HR PRN #10 tablet 03/18/19 Unknown Rx Hydrocortisone 1% [Hydrocortisone 1 applicatio TP TID 7 Days #1 tube 11/08/19 Unknown Rx 1% CREAM] Ketotifen Fumarate 1 drop OP BID 7 Days #1 drops 11/08/19 Unknown Rx diphenhydrAMINE [Benadryl CAP] 50 mg PO Q8HR PRN #30 capsule 11/08/19 Unknown Rx Nystatin Oint [Mycostatin Oint] 1 applicatio TP Q8H #1 tube 11/11/19 Unknown Rx Allergies Allergy/AdvReac Type Severity Reaction Status Date / Time No Known Allergies Allergy Verified 03/16/19 13:50 ED Review of Systems ROS: Stated complaint: RT LEG PAIN Other details as noted in HPI Constitutional: denies: chills, fever Eyes: denies: eye pain, eye discharge, vision change ENT: denies: ear pain, throat pain Respiratory: denies: cough, shortness of breath, wheezing Cardiovascular: denies: chest pain, palpitations Endocrine: no symptoms reported Gastrointestinal: denies: abdominal pain, nausea, diarrhea Genitourinary: denies: urgency, dysuria Musculoskeletal: arthralgia (right ankle and foot pain, chronic), myalgia. denies: back pain, joint swelling Skin: rash (dry scaly erythematous diffuse itchy rashes on the groins). denies: lesions Neurological: denies: headache, weakness, paresthesias Psychiatric: denies: anxiety, depression Hematological/Lymphatic: denies: easy bleeding, easy bruising ED Past Medical Hx - Past Medical History Previous Medical History?: Yes Hx Hypertension: Yes Hx Psychiatric Treatment: Yes (Depression, drug abuse) Hx HIV: Yes Additional medical history: Skin CA, "Gallbladder messed up" - Surgical History Past Surgical History?: Yes Additional Surgical History: right foot surgery - Social History Smoking Status: Never Smoker Substance Use Type: None - Medications Home Medications: Home Medications Medication Instructions Recorded Confirmed Last Taken Type Abacavir/Lamivudine/Zidovudine 1 each PO DAILY 04/07/15 02/18/19 Unknown History [Trizivir TAB] Atazanavir Sulfate [Reyataz] 300 mg PO BID 04/07/15 02/18/19 Unknown History Ritonavir [Norvir] 100 mg PO QDAY 04/07/15 02/18/19 Unknown History hydroCHLOROthiazide [Hctz] 12.5 mg PO QDAY 04/07/15 02/18/19 04/07/15 History lisinopriL [Zestril] 20 mg PO QDAY 04/07/15 02/18/19 04/06/15 History Permethrin 5% [Acticin 5% CREAM] 1 applicatio TP ONCE #2 tube 04/08/15 02/18/19 Unknown Rx hydrOXYzine HCL [Atarax] 25 mg PO Q6HR PRN #20 tablet 04/08/15 02/18/19 Unknown Rx Acetaminophen/Codeine [Tylenol 1 tab PO Q6H PRN #15 tab 03/04/19 Unknown Rx /Codeine # 3 tab] Acetaminophen/Codeine [Tylenol 1 tab PO Q6H PRN #15 tab 03/04/19 Unknown Rx /Codeine # 3 tab] Hydrocortisone [Hydrocortisone 1% 15 gm TP BID #1 cream..g. 03/04/19 Unknown Rx CREAM] Sulfamethoxazole/Trimethoprim 2 each PO BID #8 tablet 03/04/19 Unknown Rx [Bactrim DS TAB] Clindamycin [Clindamycin CAP] 300 mg PO Q8H #21 cap 03/18/19 Unknown Rx HYDROcodone/APAP 5-325 [[place] 1 each PO Q6HR PRN #14 tablet 03/18/19 Unknown Rx 5/325] Ibuprofen [Motrin 800 MG tab] 800 mg PO Q8HR PRN #10 tablet 03/18/19 Unknown Rx Hydrocortisone 1% [Hydrocortisone 1 applicatio TP TID 7 Days #1 tube 11/08/19 Unknown Rx 1% CREAM] Ketotifen Fumarate 1 drop OP BID 7 Days #1 drops 11/08/19 Unknown Rx diphenhydrAMINE [Benadryl CAP] 50 mg PO Q8HR PRN #30 capsule 11/08/19 Unknown Rx Nystatin Oint [Mycostatin Oint] 1 applicatio TP Q8H #1 tube 11/11/19 Unknown Rx ED Physical Exam - General Limitations: No Limitations General appearance: alert, in no apparent distress - Head Head exam: Present: atraumatic, normocephalic, normal inspection - Eye Eye exam: Present: normal appearance, PERRL, EOMI Pupils: Present: normal accommodation - ENT ENT exam: Present: normal exam, normal orophraynx, mucous membranes moist, TM's normal bilaterally, normal external ear exam - Neck Neck exam: Present: normal inspection, full ROM - Respiratory Respiratory exam: Present: normal lung sounds bilaterally. Absent: respiratory distress, wheezes, rales, chest wall tenderness, accessory muscle use - Cardiovascular Cardiovascular Exam: Present: normal rhythm, tachycardia, normal heart sounds. Absent: systolic murmur, diastolic murmur, rubs, gallop - GI/Abdominal GI/Abdominal exam: Present: soft, normal bowel sounds. Absent: tenderness, rebound, hyperactive bowel sounds, hypoactive bowel sounds - Extremities Exam Extremities exam: Present: normal inspection, tenderness (palpable mild tenderness of cast -covered right ankle and foot), normal capillary refill - Back Exam Back exam: Present: normal inspection, full ROM. Absent: tenderness, CVA tenderness (R), CVA tenderness (L), muscle spasm, paraspinal tenderness - Neurological Exam Neurological exam: Present: alert, oriented X3, CN II-XII intact, normal gait, reflexes normal - Psychiatric Psychiatric exam: Present: normal affect, normal mood, anxious - Skin Skin exam: Present: warm, dry, intact, normal color, rash (dry scaly mildly erythematous rashes on groins bilaterally), erythema ED Course Vital Signs 11/11/19 11/11/19 13:15 22:33 Temperature 97.7 F Pulse Rate 110 H 88 Respiratory 16 17 Rate Blood Pressure 144/111 O2 Sat by Pulse 98 100 Oximetry ED Medical Decision Making - Lab Data Result diagrams: 11/11/19 15:00 11/11/19 15:00 - Medical Decision Making This is a 54-year-old -[place] male with a history of chronic right ankle and foot pain, chronic osteoarthritis, and chronic HIV who is currently on IV antibiotic through the PICC line on the right upper for a recent diagnosed osteomyelitis of the right foot, and who presents to the ED with worsening right foot and ankle pain after he failed to take his narcotic pain medications over 24 hours ago. In the ED, patient is alert and oriented 3 and is not in distress. Patient was treated in the ED with pain medication, and discharged home with a clearance to go back to the facility where he receives his parenteral antibiotic therapy for the recent diagnosis of osteomyelitis of the right foot. Patient was advised to return to the ED immediately if symptoms get worse. - Differential Diagnosis chronic right foot pain; chronic osteomyelitis; Tinea cruris; chronic pain Critical care attestation.: If time is entered above; I have spent that time in minutes in the direct care of this critically ill patient, excluding procedure time. ED Disposition Clinical Impression: Tinea cruris, Chronic osteoarthritis Osteomyelitis Qualifiers: Osteomyelitis type: other chronic Osteomyelitis location: foot Laterality: right Qualified Code(s): M86.671 - Other chronic osteomyelitis, right ankle and foot Disposition: DC-01 TO HOME OR SELFCARE Is pt being admited?: No Does the pt Need Aspirin: No Condition: Stable Instructions: Osteomyelitis (ED), Chronic Pain (ED), Jock Itch (ED) Additional Instructions: Take your regular pain medications as advised, continue with the your antibiotic parenteral therapy at the rehabilitation facility as before. Follow-up with your primary care physician in 7-10 days for reevaluation, or return to the ED immediately if symptoms get worse. Prescriptions: Nystatin Oint [Mycostatin Oint] 1 applicatio TP Q8H #1 tube Referrals: Ino VALERA MD [Primary Care Provider] - 3-5 Days Forms: Work/School Release Form(ED) Time of Disposition: 22:34 Print Language: GUATEMALAN
== END 2019-11-11 22:40 | disposition home or self-care (01) ==
LOC: ED 11:44
DX: B35.6 Tinea cruris (principal); M86.671 Other chronic osteomyelitis, right ankle and foot; I10 Essential (primary) hypertension; F32.9 Major depressive disorder, single episode, unspecified; Z79.899 Other long term (current) drug therapy; Z98.890 Other specified postprocedural states
CPT/HCPCS: 36415; 73590; 80048; 85007; 85025; 93005; 93010; 96372; 99284; J1885

== ENCOUNTER 2019-12-18 17:52 | Emergency (ER) | payer OTHER ==
[2019-12-18 18:32] VITALS: BP 164/106
== END 2019-12-18 21:00 | disposition left against medical advice (07) ==
LOC: ED 17:52
DX: M54.89 Other dorsalgia (principal); Z53.21 Procedure and treatment not carried out due to patient leaving prior to being seen by health care provider

== ENCOUNTER 2019-12-23 09:58 | Emergency (ER) | payer MEDICARE, OTHER ==
[2019-12-23 10:17] VITALS: BP 148/77
[2019-12-23] MEDS ORDERED: ONDANSETRON 4 MG/2 ML INJ IM ONE (10:32)
[2019-12-23] MEDS ORDERED: MORPHINE 4 MG/1 ML INJ IV ONE (10:32)
[2019-12-23] MEDS ORDERED: MORPHINE 4 MG/1 ML INJ IM ONE (10:33)
[2019-12-23] MEDS ORDERED: MECLIZINE 25 MG TAB PO ONE (10:34)
--- NOTE | 2019-12-23 10:42 | Emergency Department Report ---
ED General Adult HPI - General Chief complaint: Pain General Stated complaint: RT FOOT AND LEG PAIN Time Seen by Provider: 12/23/19 10:10 Source: patient, EMS Mode of arrival: Stretcher Limitations: No Limitations - History of Present Illness Initial comments: Patient presents to the emergency department the chief complaint of right heel pain. Patient states he was diagnosed with osteomyelitis and has had 2 surgeries with the last one being 2 months ago. Patient states he saw his grain manager last week and got the cast off and was placed in a walking boot. Patient states his surgery was done at [facility]. Patient states that with increased activity is having pain of his right foot. Patient denies fever, cough, dysuria. Patient has a follow-up appointment with his grain manager on December 29. Export Clerk is a part of the [facility] podiatry group -: Gradual Location: lower extremity Radiation: non-radiation Severity scale (0 -10): 6 Quality: aching Consistency: constant Improves with: rest Worsens with: movement Associated Symptoms: denies other symptoms Treatments Prior to Arrival: none - Related Data Home Medications Medication Instructions Recorded Confirmed Last Taken Abacavir/Lamivudine/Zidovudine 1 each PO DAILY 04/07/15 02/18/19 Unknown [Trizivir TAB] Atazanavir Sulfate [Reyataz] 300 mg PO BID 04/07/15 02/18/19 Unknown Ritonavir [Norvir] 100 mg PO QDAY 04/07/15 02/18/19 Unknown hydroCHLOROthiazide [Hctz] 12.5 mg PO QDAY 04/07/15 02/18/19 04/07/15 lisinopriL [Zestril] 20 mg PO QDAY 04/07/15 02/18/19 04/06/15 Previous Rx's Medication Instructions Recorded Last Taken Type Permethrin 5% [Acticin 5% CREAM] 1 applicatio TP ONCE #2 tube 04/08/15 Unknown Rx hydrOXYzine HCL [Atarax] 25 mg PO Q6HR PRN #20 tablet 04/08/15 Unknown Rx Acetaminophen/Codeine [Tylenol 1 tab PO Q6H PRN #15 tab 03/04/19 Unknown Rx /Codeine # 3 tab] Acetaminophen/Codeine [Tylenol 1 tab PO Q6H PRN #15 tab 03/04/19 Unknown Rx /Codeine # 3 tab] Hydrocortisone [Hydrocortisone 1% 15 gm TP BID #1 cream..g. 03/04/19 Unknown Rx CREAM] Sulfamethoxazole/Trimethoprim 2 each PO BID #8 tablet 03/04/19 Unknown Rx [Bactrim DS TAB] Clindamycin [Clindamycin CAP] 300 mg PO Q8H #21 cap 03/18/19 Unknown Rx HYDROcodone/APAP 5-325 [[place] 1 each PO Q6HR PRN #14 tablet 03/18/19 Unknown Rx 5/325] Ibuprofen [Motrin 800 MG tab] 800 mg PO Q8HR PRN #10 tablet 03/18/19 Unknown Rx Hydrocortisone 1% [Hydrocortisone 1 applicatio TP TID 7 Days #1 tube 11/08/19 Unknown Rx 1% CREAM] Ketotifen Fumarate 1 drop OP BID 7 Days #1 drops 11/08/19 Unknown Rx diphenhydrAMINE [Benadryl CAP] 50 mg PO Q8HR PRN #30 capsule 11/08/19 Unknown Rx Nystatin Oint [Mycostatin Oint] 1 applicatio TP Q8H #1 tube 11/11/19 Unknown Rx HYDROcodone/APAP 7.5-325 [[place] 1 each PO Q6HR PRN #15 tablet 12/23/19 Unknown Rx 7.5/325] Allergies Allergy/AdvReac Type Severity Reaction Status Date / Time No Known Allergies Allergy Verified 03/16/19 13:50 ED Review of Systems ROS: Stated complaint: RT FOOT AND LEG PAIN Other details as noted in HPI Constitutional: denies: chills, fever Eyes: denies: eye pain, eye discharge, vision change ENT: denies: ear pain, throat pain Respiratory: denies: cough, shortness of breath, wheezing Cardiovascular: denies: chest pain, palpitations Endocrine: no symptoms reported Gastrointestinal: denies: abdominal pain, nausea, diarrhea Genitourinary: denies: urgency, dysuria Musculoskeletal: other (Foot pain). denies: back pain, joint swelling, arthralgia Skin: denies: rash, lesions Neurological: denies: headache, weakness, paresthesias Psychiatric: denies: anxiety, depression Hematological/Lymphatic: denies: easy bleeding, easy bruising ED Past Medical Hx - Past Medical History Hx Hypertension: Yes Hx Psychiatric Treatment: Yes (Depression, drug abuse) Hx HIV: Yes Additional medical history: Skin CA, "Gallbladder messed up" - Surgical History Additional Surgical History: right foot surgery - Social History Smoking Status: Current Every Day Smoker Substance Use Type: None - Medications Home Medications: Home Medications Medication Instructions Recorded Confirmed Last Taken Type Abacavir/Lamivudine/Zidovudine 1 each PO DAILY 04/07/15 02/18/19 Unknown History [Trizivir TAB] Atazanavir Sulfate [Reyataz] 300 mg PO BID 04/07/15 02/18/19 Unknown History Ritonavir [Norvir] 100 mg PO QDAY 04/07/15 02/18/19 Unknown History hydroCHLOROthiazide [Hctz] 12.5 mg PO QDAY 04/07/15 02/18/19 04/07/15 History lisinopriL [Zestril] 20 mg PO QDAY 04/07/15 02/18/19 04/06/15 History Permethrin 5% [Acticin 5% CREAM] 1 applicatio TP ONCE #2 tube 04/08/15 02/18/19 Unknown Rx hydrOXYzine HCL [Atarax] 25 mg PO Q6HR PRN #20 tablet 04/08/15 02/18/19 Unknown Rx Acetaminophen/Codeine [Tylenol 1 tab PO Q6H PRN #15 tab 03/04/19 Unknown Rx /Codeine # 3 tab] Acetaminophen/Codeine [Tylenol 1 tab PO Q6H PRN #15 tab 03/04/19 Unknown Rx /Codeine # 3 tab] Hydrocortisone [Hydrocortisone 1% 15 gm TP BID #1 cream..g. 03/04/19 Unknown Rx CREAM] Sulfamethoxazole/Trimethoprim 2 each PO BID #8 tablet 03/04/19 Unknown Rx [Bactrim DS TAB] Clindamycin [Clindamycin CAP] 300 mg PO Q8H #21 cap 03/18/19 Unknown Rx HYDROcodone/APAP 5-325 [[place] 1 each PO Q6HR PRN #14 tablet 03/18/19 Unknown Rx 5/325] Ibuprofen [Motrin 800 MG tab] 800 mg PO Q8HR PRN #10 tablet 03/18/19 Unknown Rx Hydrocortisone 1% [Hydrocortisone 1 applicatio TP TID 7 Days #1 tube 11/08/19 Unknown Rx 1% CREAM] Ketotifen Fumarate 1 drop OP BID 7 Days #1 drops 11/08/19 Unknown Rx diphenhydrAMINE [Benadryl CAP] 50 mg PO Q8HR PRN #30 capsule 11/08/19 Unknown Rx Nystatin Oint [Mycostatin Oint] 1 applicatio TP Q8H #1 tube 11/11/19 Unknown Rx HYDROcodone/APAP 7.5-325 [[place] 1 each PO Q6HR PRN #15 tablet 12/23/19 Unknown Rx 7.5/325] ED Physical Exam - General Limitations: No Limitations General appearance: alert, in no apparent distress - Head Head exam: Present: atraumatic, normocephalic - Eye Eye exam: Present: normal appearance, PERRL, EOMI - ENT ENT exam: Present: mucous membranes moist - Neck Neck exam: Present: normal inspection - Respiratory Respiratory exam: Present: normal lung sounds bilaterally. Absent: respiratory distress - Cardiovascular Cardiovascular Exam: Present: regular rate, normal rhythm. Absent: systolic murmur, diastolic murmur, rubs, gallop - GI/Abdominal GI/Abdominal exam: Present: soft, normal bowel sounds - Rectal Rectal exam: Present: deferred - Extremities Exam Extremities exam: Present: normal inspection, other (Surgical site of the right foot plantar aspect shows a well-healing surgical wound without signs of infection) - Back Exam Back exam: Present: normal inspection - Neurological Exam Neurological exam: Present: alert, oriented X3 - Psychiatric Psychiatric exam: Present: normal affect, normal mood - Skin Skin exam: Present: warm, dry, intact, normal color. Absent: rash ED Course Vital Signs 12/23/19 10:12 Temperature 97.9 F Pulse Rate 83 Respiratory 15 Rate Blood Pressure 148/77 O2 Sat by Pulse 99 Oximetry ED Medical Decision Making - Medical Decision Making Plan of care discussed with patient Critical care attestation.: If time is entered above; I have spent that time in minutes in the direct care of this critically ill patient, excluding procedure time. ED Disposition Clinical Impression: Foot pain, right Disposition: DC-01 TO HOME OR SELFCARE Is pt being admited?: No Does the pt Need Aspirin: No Condition: Stable Additional Instructions: return if worse Referrals: PRIMARY CARE, [Primary Care Provider] - 3-5 Days TANIA RENTERIA DPM [Staff Physician] - 3-5 Days Time of Disposition: 10:44
== END 2019-12-23 11:35 | disposition home or self-care (01) ==
LOC: ED 09:58
DX: M79.671 Pain in right foot (principal); I10 Essential (primary) hypertension; F32.9 Major depressive disorder, single episode, unspecified; F17.200 Nicotine dependence, unspecified, uncomplicated; Z21 Asymptomatic human immunodeficiency virus [HIV] infection status; Z98.890 Other specified postprocedural states; Z79.1 Long term (current) use of non-steroidal anti-inflammatories (NSAID); Z79.899 Other long term (current) drug therapy
CPT/HCPCS: 96372; 99283; J2270; J2405

== ENCOUNTER 2020-01-02 20:36 | Emergency (ER) | payer MEDICARE ==
[2020-01-02 22:32] VITALS: BP 181/106
[2020-01-02 23:26] LABS: Basophils % (Auto) 0.5 % (0.0-1.8); Eosinophils # (Auto) 0.5 K/mm3 (0.0-0.4); Eosinophils % (Auto) 8.6 % (0.0-4.3); Hematocrit 35.6 % (35.5-45.6); Hemoglobin 11.7 gm/dl (11.8-15.2); Lymphocytes # (Auto) 1.8 K/mm3 (1.2-5.4); Lymphocytes % (Auto) 31.6 % (13.4-35.0); Mean Corpuscular HGB Conc 33 % (32-34); Mean Corpuscular Volume 84 fl (84-94); Monocytes # (Auto) 0.8 K/mm3 (0.0-0.8); Monocytes % (Auto) 14.7 % (0.0-7.3); Platelet Count 263 K/mm3 (140-440); Red Blood Count 4.22 M/mm3 (3.65-5.03); Red Cell Distribution Width 15.1 % (13.2-15.2)
[2020-01-02 23:50] LABS: BUN/Creatinine Ratio 11; Blood Urea Nitrogen 14 mg/dL (9-20); Calcium 9.4 mg/dL (8.4-10.2); Hemolysis Index 7
== END 2020-01-03 02:00 | disposition left against medical advice (07) ==
LOC: ED 20:36
DX: R22.41 Localized swelling, mass and lump, right lower limb (principal); Z53.21 Procedure and treatment not carried out due to patient leaving prior to being seen by health care provider
CPT/HCPCS: 36415; 80048; 85025

== ENCOUNTER 2021-07-13 16:43 | Emergency (ER) | payer MEDICARE ==
[2021-07-13 18:02] VITALS: BP 171/106
--- NOTE | 2021-07-13 19:43 | Emergency Department Report ---
ED Back Pain/Injury HPI - General Chief Complaint: Back Pain/Injury Stated Complaint: FELL,HIT BACK Time Seen by Provider: 07/13/21 18:42 Source: patient Limitations: No Limitations - History of Present Illness MD Complaint: back pain, back injury -: Gradual Place: home Radiation: none Severity: mild Quality: dull, aching Consistency: constant Improves With: none Worsens With: none - Related Data Home Medications Medication Instructions Recorded Confirmed Last Taken Abacavir/Lamivudine/Zidovudine 1 each PO DAILY 04/07/15 02/18/19 Unknown [Trizivir TAB] Atazanavir Sulfate [Reyataz] 300 mg PO BID 04/07/15 02/18/19 Unknown Ritonavir [Norvir] 100 mg PO QDAY 04/07/15 02/18/19 Unknown hydroCHLOROthiazide [Hctz] 12.5 mg PO QDAY 04/07/15 02/18/19 04/07/15 lisinopriL [Zestril] 20 mg PO QDAY 04/07/15 02/18/19 04/06/15 Previous Rx's Medication Instructions Recorded Last Taken Type Permethrin 5% [Acticin 5% CREAM] 1 applicatio TP ONCE #2 tube 04/08/15 Unknown Rx hydrOXYzine HCL [Atarax] 25 mg PO Q6HR PRN #20 tablet 04/08/15 Unknown Rx Acetaminophen/Codeine [Tylenol 1 tab PO Q6H PRN #15 tab 03/04/19 Unknown Rx /Codeine # 3 tab] Acetaminophen/Codeine [Tylenol 1 tab PO Q6H PRN #15 tab 03/04/19 Unknown Rx /Codeine # 3 tab] Hydrocortisone [Hydrocortisone 1% 15 gm TP BID #1 cream..g. 03/04/19 Unknown Rx CREAM] Sulfamethoxazole/Trimethoprim 2 each PO BID #8 tablet 03/04/19 Unknown Rx [Bactrim DS TAB] Clindamycin [Clindamycin CAP] 300 mg PO Q8H #21 cap 03/18/19 Unknown Rx HYDROcodone/APAP 5-325 [[place] 1 each PO Q6HR PRN #14 tablet 03/18/19 Unknown Rx 5/325] Ibuprofen [Motrin 800 MG tab] 800 mg PO Q8HR PRN #10 tablet 03/18/19 Unknown Rx Hydrocortisone 1% [Hydrocortisone 1 applicatio TP TID 7 Days #1 tube 11/08/19 Unknown Rx 1% CREAM] Ketotifen Fumarate 1 drop OP BID 7 Days #1 drops 11/08/19 Unknown Rx diphenhydrAMINE [Benadryl CAP] 50 mg PO Q8HR PRN #30 capsule 11/08/19 Unknown Rx Nystatin Oint [Mycostatin Oint] 1 applicatio TP Q8H #1 tube 11/11/19 Unknown Rx HYDROcodone/APAP 7.5-325 [[place] 1 each PO Q6HR PRN #15 tablet 12/23/19 Unknown Rx 7.5/325] Ketorolac [Toradol] 10 mg PO Q6H PRN #15 tablet 07/13/21 Unknown Rx methOCARBAMOL [Robaxin] 750 mg PO Q8H PRN #21 tablet 07/13/21 Unknown Rx traMADoL [Ultram] 50 mg PO Q6HR PRN #20 tablet 07/13/21 Unknown Rx Allergies Allergy/AdvReac Type Severity Reaction Status Date / Time No Known Allergies Allergy Verified 07/13/21 18:09 ED Review of Systems ROS: Stated complaint: FELL,HIT BACK Other details as noted in HPI Comment: All other systems reviewed and negative ED Past Medical Hx - Past Medical History Previous Medical History?: Yes Hx Hypertension: Yes Hx Psychiatric Treatment: Yes (Depression, drug abuse) Hx HIV: Yes Additional medical history: Skin CA, "Gallbladder messed up" - Surgical History Past Surgical History?: No Additional Surgical History: right foot surgery - Social History Smoking Status: Current Every Day Smoker - Medications Home Medications: Home Medications Medication Instructions Recorded Confirmed Last Taken Type Abacavir/Lamivudine/Zidovudine 1 each PO DAILY 04/07/15 02/18/19 Unknown History [Trizivir TAB] Atazanavir Sulfate [Reyataz] 300 mg PO BID 04/07/15 02/18/19 Unknown History Ritonavir [Norvir] 100 mg PO QDAY 04/07/15 02/18/19 Unknown History hydroCHLOROthiazide [Hctz] 12.5 mg PO QDAY 04/07/15 02/18/19 04/07/15 History lisinopriL [Zestril] 20 mg PO QDAY 04/07/15 02/18/19 04/06/15 History Permethrin 5% [Acticin 5% CREAM] 1 applicatio TP ONCE #2 tube 04/08/15 02/18/19 Unknown Rx hydrOXYzine HCL [Atarax] 25 mg PO Q6HR PRN #20 tablet 04/08/15 02/18/19 Unknown Rx Acetaminophen/Codeine [Tylenol 1 tab PO Q6H PRN #15 tab 03/04/19 Unknown Rx /Codeine # 3 tab] Acetaminophen/Codeine [Tylenol 1 tab PO Q6H PRN #15 tab 03/04/19 Unknown Rx /Codeine # 3 tab] Hydrocortisone [Hydrocortisone 1% 15 gm TP BID #1 cream..g. 03/04/19 Unknown Rx CREAM] Sulfamethoxazole/Trimethoprim 2 each PO BID #8 tablet 03/04/19 Unknown Rx [Bactrim DS TAB] Clindamycin [Clindamycin CAP] 300 mg PO Q8H #21 cap 03/18/19 Unknown Rx HYDROcodone/APAP 5-325 [[place] 1 each PO Q6HR PRN #14 tablet 03/18/19 Unknown Rx 5/325] Ibuprofen [Motrin 800 MG tab] 800 mg PO Q8HR PRN #10 tablet 03/18/19 Unknown Rx Hydrocortisone 1% [Hydrocortisone 1 applicatio TP TID 7 Days #1 tube 11/08/19 Unknown Rx 1% CREAM] Ketotifen Fumarate 1 drop OP BID 7 Days #1 drops 11/08/19 Unknown Rx diphenhydrAMINE [Benadryl CAP] 50 mg PO Q8HR PRN #30 capsule 11/08/19 Unknown Rx Nystatin Oint [Mycostatin Oint] 1 applicatio TP Q8H #1 tube 11/11/19 Unknown Rx HYDROcodone/APAP 7.5-325 [[place] 1 each PO Q6HR PRN #15 tablet 12/23/19 Unknown Rx 7.5/325] Ketorolac [Toradol] 10 mg PO Q6H PRN #15 tablet 07/13/21 Unknown Rx methOCARBAMOL [Robaxin] 750 mg PO Q8H PRN #21 tablet 07/13/21 Unknown Rx traMADoL [Ultram] 50 mg PO Q6HR PRN #20 tablet 07/13/21 Unknown Rx ED Physical Exam - General Limitations: No Limitations General appearance: alert, in no apparent distress - Head Head exam: Present: atraumatic, normocephalic - Eye Eye exam: Present: normal appearance, PERRL, EOMI Pupils: Present: normal accommodation - ENT ENT exam: Present: normal exam, normal orophraynx, mucous membranes moist, TM's normal bilaterally - Neck Neck exam: Present: normal inspection, full ROM - Respiratory Respiratory exam: Present: normal lung sounds bilaterally. Absent: respiratory distress, wheezes, rales, chest wall tenderness, accessory muscle use - Cardiovascular Cardiovascular Exam: Present: regular rate, normal rhythm. Absent: systolic murmur, diastolic murmur, rubs, gallop - GI/Abdominal GI/Abdominal exam: Present: soft, normal bowel sounds - Rectal Rectal exam: Present: deferred - Extremities Exam Extremities exam: Present: normal inspection, normal capillary refill - Back Exam Back exam: Present: tenderness. Absent: CVA tenderness (R), CVA tenderness (L) - Neurological Exam Neurological exam: Present: alert, oriented X3, CN II-XII intact - Psychiatric Psychiatric exam: Present: normal affect, normal mood. Absent: anxious, flat affect - Skin Skin exam: Present: warm, dry, intact, normal color. Absent: rash, cyanosis, diaphoretic, erythema ED Course Vital Signs 07/13/21 18:01 Temperature 98.1 F Pulse Rate 90 Respiratory 20 Rate Blood Pressure 171/106 [Right] O2 Sat by Pulse 98 Oximetry Critical care attestation.: If time is entered above; I have spent that time in minutes in the direct care of this critically ill patient, excluding procedure time. ED Disposition Disposition: HOME / SELF CARE / HOMELESS Condition: Stable Instructions: Radicular Pain, Sacroiliac Joint Dysfunction, Sciatica, Sacroiliac Joint Injection Prescriptions: methOCARBAMOL [Robaxin] 750 mg PO Q8H PRN #21 tablet PRN Reason: Spasms Ketorolac [Toradol] 10 mg PO Q6H PRN #15 tablet PRN Reason: Pain traMADoL [Ultram] 50 mg PO Q6HR PRN #20 tablet PRN Reason: Pain Referrals: LOU CARRERO MD [Staff Physician] - 3-5 Days
== END 2021-07-13 20:24 | disposition home or self-care (01) ==
LOC: ED 16:43
DX: S39.92XA Unspecified injury of lower back, initial encounter (principal); I10 Essential (primary) hypertension; B20 Human immunodeficiency virus [HIV] disease; F32.9 Major depressive disorder, single episode, unspecified; Z98.890 Other specified postprocedural states; F17.200 Nicotine dependence, unspecified, uncomplicated; W19.XXXA Unspecified fall, initial encounter; Y93.89 Activity, other specified; Y92.89 Other specified places as the place of occurrence of the external cause; Y99.8 Other external cause status
CPT/HCPCS: 99282

== ENCOUNTER 2021-11-19 07:43 | Emergency (ER) | payer MEDICARE ==
[2021-11-19 07:50] VITALS: BP 145/88
--- NOTE | 2021-11-19 08:25 | Emergency Department Report ---
ED Back Pain/Injury HPI - General Chief Complaint: Extremity Problem,Nontraumatic Stated Complaint: BACK AND LEG PAIN Time Seen by Provider: 11/19/21 08:18 Source: patient Limitations: No Limitations - History of Present Illness Initial Comments: 56-year-old morbid obese -[place] male presents to the emergency room complaining of lower back pain that radiates down his legs. Patient states he is unsure that it can be due to him having a right heel removal in 2012. Patient states that 3 weeks ago he had a fall and needed assistance to get up. Patient denies any urinary issues except urinary frequency but states he drinks plenty of water. He reports that this started on Monday and is primary care office was closed on and he comes in today to be evaluated. Patient has a past medical history of HIV hypertension and had osteomyelitis which resulted into a right heel removal. He states that he takes lisinopril 20 mg daily and is on Biktarvy. MD Complaint: back pain Similar Symptoms Previously: No Place: home Radiation: left leg Severity scale (0 -10): 6 Quality: sharp, stabbing Consistency: intermittent Improves With: none Worsens With: immobilization, movement Associated Symptoms: denies other symptoms - Related Data Home Medications Medication Instructions Recorded Confirmed Last Taken Abacavir/Lamivudine/Zidovudine 1 each PO DAILY 04/07/15 02/18/19 Unknown [Trizivir TAB] Atazanavir Sulfate [Reyataz] 300 mg PO BID 04/07/15 02/18/19 Unknown Ritonavir [Norvir] 100 mg PO QDAY 04/07/15 02/18/19 Unknown hydroCHLOROthiazide [Hctz] 12.5 mg PO QDAY 04/07/15 02/18/19 04/07/15 lisinopriL [Zestril] 20 mg PO QDAY 04/07/15 02/18/19 04/06/15 Previous Rx's Medication Instructions Recorded Last Taken Type Permethrin 5% [Acticin 5% CREAM] 1 applicatio TP ONCE #2 tube 04/08/15 Unknown Rx hydrOXYzine HCL [Atarax] 25 mg PO Q6HR PRN #20 tablet 04/08/15 Unknown Rx Acetaminophen/Codeine [Tylenol 1 tab PO Q6H PRN #15 tab 03/04/19 Unknown Rx /Codeine # 3 tab] Acetaminophen/Codeine [Tylenol 1 tab PO Q6H PRN #15 tab 03/04/19 Unknown Rx /Codeine # 3 tab] Hydrocortisone [Hydrocortisone 1% 15 gm TP BID #1 cream..g. 03/04/19 Unknown Rx CREAM] Sulfamethoxazole/Trimethoprim 2 each PO BID #8 tablet 03/04/19 Unknown Rx [Bactrim DS TAB] Clindamycin [Clindamycin CAP] 300 mg PO Q8H #21 cap 03/18/19 Unknown Rx HYDROcodone/APAP 5-325 [[place] 1 each PO Q6HR PRN #14 tablet 03/18/19 Unknown Rx 5/325] Ibuprofen [Motrin 800 MG tab] 800 mg PO Q8HR PRN #10 tablet 03/18/19 Unknown Rx Hydrocortisone 1% [Hydrocortisone 1 applicatio TP TID 7 Days #1 tube 11/08/19 Unknown Rx 1% CREAM] Ketotifen Fumarate 1 drop OP BID 7 Days #1 drops 11/08/19 Unknown Rx diphenhydrAMINE [Benadryl CAP] 50 mg PO Q8HR PRN #30 capsule 11/08/19 Unknown Rx Nystatin Oint [Mycostatin Oint] 1 applicatio TP Q8H #1 tube 11/11/19 Unknown Rx HYDROcodone/APAP 7.5-325 [[place] 1 each PO Q6HR PRN #15 tablet 12/23/19 Unknown Rx 7.5/325] Ketorolac [Toradol] 10 mg PO Q6H PRN #15 tablet 07/13/21 Unknown Rx methOCARBAMOL [Robaxin] 750 mg PO Q8H PRN #21 tablet 07/13/21 Unknown Rx traMADoL [Ultram] 50 mg PO Q6HR PRN #20 tablet 07/13/21 Unknown Rx Ketorolac [Toradol] 10 mg PO Q6H PRN #20 11/19/21 Unknown Rx Allergies Allergy/AdvReac Type Severity Reaction Status Date / Time No Known Allergies Allergy Verified 07/13/21 18:09 ED Review of Systems ROS: Stated complaint: BACK AND LEG PAIN Other details as noted in HPI Comment: All other systems reviewed and negative ED Past Medical Hx - Past Medical History Hx Hypertension: Yes Hx Psychiatric Treatment: Yes (Depression, drug abuse) Hx HIV: Yes Additional medical history: Skin CA, "Gallbladder messed up" - Surgical History Additional Surgical History: right foot surgery - Social History Smoking Status: Current Every Day Smoker - Medications Home Medications: Home Medications Medication Instructions Recorded Confirmed Last Taken Type Abacavir/Lamivudine/Zidovudine 1 each PO DAILY 04/07/15 02/18/19 Unknown History [Trizivir TAB] Atazanavir Sulfate [Reyataz] 300 mg PO BID 04/07/15 02/18/19 Unknown History Ritonavir [Norvir] 100 mg PO QDAY 04/07/15 02/18/19 Unknown History hydroCHLOROthiazide [Hctz] 12.5 mg PO QDAY 04/07/15 02/18/19 04/07/15 History lisinopriL [Zestril] 20 mg PO QDAY 04/07/15 02/18/19 04/06/15 History Permethrin 5% [Acticin 5% CREAM] 1 applicatio TP ONCE #2 tube 04/08/15 02/18/19 Unknown Rx hydrOXYzine HCL [Atarax] 25 mg PO Q6HR PRN #20 tablet 04/08/15 02/18/19 Unknown Rx Acetaminophen/Codeine [Tylenol 1 tab PO Q6H PRN #15 tab 03/04/19 Unknown Rx /Codeine # 3 tab] Acetaminophen/Codeine [Tylenol 1 tab PO Q6H PRN #15 tab 03/04/19 Unknown Rx /Codeine # 3 tab] Hydrocortisone [Hydrocortisone 1% 15 gm TP BID #1 cream..g. 03/04/19 Unknown Rx CREAM] Sulfamethoxazole/Trimethoprim 2 each PO BID #8 tablet 03/04/19 Unknown Rx [Bactrim DS TAB] Clindamycin [Clindamycin CAP] 300 mg PO Q8H #21 cap 03/18/19 Unknown Rx HYDROcodone/APAP 5-325 [[place] 1 each PO Q6HR PRN #14 tablet 03/18/19 Unknown Rx 5/325] Ibuprofen [Motrin 800 MG tab] 800 mg PO Q8HR PRN #10 tablet 03/18/19 Unknown Rx Hydrocortisone 1% [Hydrocortisone 1 applicatio TP TID 7 Days #1 tube 11/08/19 Unknown Rx 1% CREAM] Ketotifen Fumarate 1 drop OP BID 7 Days #1 drops 11/08/19 Unknown Rx diphenhydrAMINE [Benadryl CAP] 50 mg PO Q8HR PRN #30 capsule 11/08/19 Unknown Rx Nystatin Oint [Mycostatin Oint] 1 applicatio TP Q8H #1 tube 11/11/19 Unknown Rx HYDROcodone/APAP 7.5-325 [[place] 1 each PO Q6HR PRN #15 tablet 12/23/19 Unknown Rx 7.5/325] Ketorolac [Toradol] 10 mg PO Q6H PRN #15 tablet 07/13/21 Unknown Rx methOCARBAMOL [Robaxin] 750 mg PO Q8H PRN #21 tablet 07/13/21 Unknown Rx traMADoL [Ultram] 50 mg PO Q6HR PRN #20 tablet 07/13/21 Unknown Rx Ketorolac [Toradol] 10 mg PO Q6H PRN #20 11/19/21 Unknown Rx ED Physical Exam - General Limitations: No Limitations General appearance: alert, in no apparent distress - Head Head exam: Present: atraumatic, normocephalic - Eye Eye exam: Present: normal appearance - ENT ENT exam: Present: mucous membranes moist - Neck Neck exam: Present: normal inspection, full ROM - Respiratory Respiratory exam: Absent: respiratory distress, accessory muscle use - Cardiovascular Cardiovascular Exam: Present: regular rate - Back Exam Back exam: Present: full ROM, muscle spasm, paraspinal tenderness - Neurological Exam Neurological exam: Present: alert, oriented X3, abnormal gait - Psychiatric Psychiatric exam: Present: normal affect, normal mood - Skin Skin exam: Present: warm, dry, intact, normal color. Absent: rash ED Course Vital Signs 11/19/21 07:49 Temperature 97.8 F Pulse Rate 76 Respiratory 16 Rate Blood Pressure 145/88 [Right] O2 Sat by Pulse 99 Oximetry ED Medical Decision Making - Radiology Data Radiology results: report reviewed [facility] [address] [place] [address] XRay Report Signed Patient: BONNIE FORREST MR#: Ino [id number] : 1965 Acct:[id number] Age/Sex: 56 / M ADM Date: 11/19/21 Loc: ED Attending Dr: Ordering Physician: JENNIFER LAND Date of Service: 11/19/21 Procedure(s): XR spine lumbosacral 2-3V Accession Number(s): [id number] cc: JENNIFER LAND Fluoro Time In Minutes: THORACIC SPINE 3 VIEWS INDICATION: Follow-up with back pain. COMPARISON: None. IMPRESSION: Normal alignment. Moderate multilevel discogenic DJD is identified. No displaced fracture, bone lesion or compression deformity is identified. LUMBOSACRAL SPINE 3 VIEWS INDICATION: Follow-up with back pain. COMPARISON: None. IMPRESSION: Normal alignment. Mild discogenic DJD and facet arthropathy are identified at all levels. The SI joints are unremarkable. No acute osseous or soft tissue abnormality. Signer Name: Madi Raygoza Jr, MD Signed: 11/19/2021 9:12 AM Workstation Name: [id number] Transcribed By: TTR Dictated By: MADI RAYGOZA JR, MD Electronically Authenticated By: MADI RAYGOZA JR, MD Signed Date/Time: 11/19/21911 DD/ 0 TD/TT: - Medical Decision Making 56-year-old morbid obese -[place] male presents to the emergency room complaining of lower back pain that radiates down his legs. Patient states he is unsure that it can be due to him having a right heel removal in 2012. Patient states that 3 weeks ago he had a fall and needed assistance to get up. Patient denies any urinary issues except urinary frequency but states he drinks plenty of water. He reports that this started on Monday and is primary care office was closed on and he comes in today to be evaluated. Patient has a past medical history of HIV hypertension and had osteomyelitis which resulted into a right heel removal. He states that he takes lisinopril 20 mg daily and is on B iktarvy. Critical care attestation.: If time is entered above; I have spent that time in minutes in the direct care of this critically ill patient, excluding procedure time. ED Disposition Clinical Impression: Discogenic thoracic pain, Discogenic lumbar pain, Degenerative disc disease, lumbar, Degenerative disc disease, thoracic Disposition: 01 HOME / SELF CARE / HOMELESS Is pt being admited?: No Does the pt Need Aspirin: No Condition: Stable Instructions: Degenerative Disk Disease, Chronic Back Pain, [id number], What You Need to Know About Chronic Back Pain Additional Instructions: X-ray shows you have arthritis of your back throughout. I am recommending pain medication and a referral to a back specialist. Be sure to increase your fluid intake while taking medication. Follow-up with your primary care provider as well. Prescriptions: Ketorolac [Toradol] 10 mg PO Q6H PRN #20 PRN Reason: Pain Referrals: Ino VALERA MD [Primary Care Provider] - 3-5 Days TED ROSAS II, MD [Staff Physician] - 3-5 Days Forms: Work/School Release Form(ED) Time of Disposition: 09:57
--- NOTE | 2021-11-19 09:17 | XRay Report ---
THORACIC SPINE 3 VIEWS INDICATION: Follow-up with back pain. COMPARISON: None. IMPRESSION: Normal alignment. Moderate multilevel discogenic DJD is identified. No displaced fract ure, bone lesion or compression deformity is identified. LUMBOSACRAL SPINE 3 VIEWS INDICATION: Follow-up with back pain. COMPARISON: None. IMPRESSION: Normal alignment. Mild discogenic DJD and facet arthropathy are identified at all level s. The SI joints are unremarkable. No acute osseous or soft tissue abnormality. Signer Name: Madi Raygoza Jr, MD Signed: 11/19/2021 9:12 AM Workstation Name: [id number]
== END 2021-11-19 18:26 | disposition home or self-care (01) ==
LOC: ED 07:43
DX: M54.6 Pain in thoracic spine (principal); M54.50 Low back pain, unspecified; F17.200 Nicotine dependence, unspecified, uncomplicated; I10 Essential (primary) hypertension
CPT/HCPCS: 72070; 72100; 99283

== ENCOUNTER 2022-01-12 12:34 | Outpatient (CLI) | payer MEDICARE | END 2022-01-12 12:35 | disposition home or self-care (01) | LOC: LAB 12:34 | PROVIDERS: ATTEND Psychiatry & Neurology Psychiatry | DX: A53.0 Latent syphilis, unspecified as early or late (principal) | CPT/HCPCS: 36415; 86592; 86593; 86780 ==

== ENCOUNTER 2022-01-31 14:38 | Emergency (ER) | payer MEDICARE | END 2022-01-31 14:43 | disposition left against medical advice (07) | LOC: ED 14:38 | DX: T17.208A Unspecified foreign body in pharynx causing other injury, initial encounter (principal); Z53.21 Procedure and treatment not carried out due to patient leaving prior to being seen by health care provider; X58.XXXA Exposure to other specified factors, initial encounter; Y93.89 Activity, other specified; Y92.89 Other specified places as the place of occurrence of the external cause; Y99.8 Other external cause status ==